=== PATIENT | male | born 1975 | race Caucasian/White ===

== ENCOUNTER 2020-11-24 13:19 | Emergency (ER) | payer MEDICAID ==
[~2020-11-24 13:19] MED LIST: CLARITIN D PO; CLINDAMYCIN HC300 MG PO; LANTUS100 UNIT/1 SQ; NEOSPORIN OINT15 GM EXT; NEURONTIN800 MG PO; NOVOLOG 10100 UNITS/ SQ; PERCOCET 5-3251 EACH PO; PROTONIX20 MG PO; SINGULAIR10 MG PO; VITAMIN C500 M4 PO; VITAMIN D350000 UNIT PO; ZANAFLEX2 MG PO
[2020-11-24 15:02] LABS: HEMOGLOBIN 11.8 gm/dl (14.0-17.5); RED BLOOD COUNT 3.87 M/UL (4.20-5.50)
[2020-11-24 15:23] LABS: BUN/CREATININE RATIO 46 (0-10)
[2020-11-24] MEDS ORDERED: NAPROXEN500 MG PO (16:36)
== END 2020-11-24 16:41 | disposition home or self-care (01) ==
LOC: ER1 13:19
PROVIDERS: Physician Assistant Medical
DX: S93.402A Sprain of unspecified ligament of left ankle, initial encounter (principal); M54.9 Dorsalgia, unspecified; G89.29 Other chronic pain; F17.210 Nicotine dependence, cigarettes, uncomplicated; Z88.0 Allergy status to penicillin; E11.9 Type 2 diabetes mellitus without complications; X50.1XXA Overexertion from prolonged static or awkward postures, initial encounter
CPT/HCPCS: 72132; 73590; 73630; 80053; 85025; 85652; 86140; 99284; Q9967